=== PATIENT | male | born 1975 | race Caucasian/White ===

== ENCOUNTER 2024-11-24 12:57 | Day surgery (SDC) | payer MEDICAID ==
[2024-11-22 11:21] LABS: LEUKOCYTE ESTERASE ,URINE NEGATIVE (Neg); NITRITES, URINE NEGATIVE (Neg); OCCULT BLOOD,URINE NEGATIVE (Neg)
[2024-11-22 11:22] LABS: MEAN PLATELET VOLUME 10.2 FL (7.4-10.4); PRE OP HEMATOCRIT 44.9 % (42.0-52.0); PRE OP HEMOGLOBIN 15.6 g/dL (14.0-17.9); PRE OP PLATELET COUNT 181 X10'3 (140-440); PRE OP WHITE BLOOD COUNT 5.8 10'3 (4.8-10.8); RED CELL DISTRIBUTION WIDTH 12.8 % (11.5-14.5)
[2024-11-22 11:27] LABS: UA COLLECTION TYPE NON-SPECIFIED
[2024-11-22 11:36] LABS: CREATININE 1.13 MG/DL (0.60-1.10); PRE OP ALT 41 U/L (30-65); PRE OP ANION GAP 6 (8-16); PRE OP AST 25 U/L (10-37); PRE OP BILIRUB, TOTAL 0.5 MG/DL (0.0-1.0); PRE OP GLUCOSE 96 MG/DL (70-104); PRE OP POTASSIUM 3.9 MMOL/L (3.4-5.1); PRE OP SODIUM 143 MMOL/L (135-145); TOTAL CARBON DIOXIDE 31.0 MMOL/L (24-32); eGFR 70 ML/MIN
--- NOTE | 2024-11-22 12:24 | ELECTROCARDIOGRAPH REPORT ---
[facility] Test Date: 2024-11-22 Test Time: 12:20:08 Pat Name: ROMAINE FLORIAN Department: [facility]-PRE-OP Patient ID: [facility]-[id number] Room: Gender: M Manager Grant: : [id number] Requested By: DEBORAH OMALLEY Order Number: [id number] Reading MD: Dr. DIEGO Shannon Measurements Intervals [place] Rate: 71 P: 64 CA: 123 QRS: 70 QRSD: 99 T: 43 QT: 387 QTc: 421 Interpretive Statements Sinus rhythm ST elev, probable normal early repol pattern Electronically Signed On 11-23-2024 16:36:[address] DIEGO Shannon Please click the below link to view image of tracing.
[~2024-11-24] VITALS: Ht 180.3 cm; Wt 92.8 kg
[2024-11-24] VITALS (8 sets, daily range): BP systolic 115–136; BP diastolic 69–86; PULSE 66–97; RESP 15–21; TEMP 98; O2SAT 67–99
[2024-11-24] MEDS: ceFAZolin 2gm/dext,iso 50mL 50 ML IV ONE (05:30)
[~2024-11-24 12:57] MED LIST: AMLO5TAB PO; BUPR-726 PO
[2024-11-24] MEDS: ringers solution, lacted 1,000 ML IV SCH (13:47)
[2024-11-24] MEDS ORDERED: BUPIVAcaine/PF 2.5 mg/ml (0.25%) 30ml vial ONE (14:28)
[2024-11-24] MEDS ORDERED: bacitracin 15gm ointment TP ONE (14:28)
[2024-11-24] MEDS ORDERED: midazolam 1 mg/ML 2ml injection ONE (15:40)
[2024-11-24] MEDS ORDERED: fentaNYL/PF 50MCG/1 ML 2ML syringe ONE ×2 (15:40→17:36)
[2024-11-24] MEDS ORDERED: propofol inj 20 ML IV ONE (15:41)
[2024-11-24] MEDS ORDERED: LIDOcaine 2% (20mg/ml) 5ml vial ONE (15:41)
[2024-11-24] MEDS ORDERED: ROPIVAcaine 0.5% (5mg/ml) 30ml vial ONE (15:41)
[2024-11-24] MEDS ORDERED: ondansetron/PF 4mg/2ml inj ONE (15:41)
[2024-11-24] MEDS ORDERED: acetaminophen 1,000mg/100ml IV 100 ML IV ONE (15:55)
[2024-11-24] MEDS ORDERED: morphine 4 MG/ML inj SYRINge IV PRN (16:00)
[2024-11-24] MEDS ORDERED: ringers solution, lacted 1,000 ML IV SCH (16:00)
[2024-11-24] MEDS ORDERED: labetalol 20mg/4ml (5mg/ml) syringe IV PRN (16:00)
[2024-11-24] MEDS ORDERED: HYDROmorphone/PF 0.2 MG/ML SYRINGE IV PRN ×2 (16:00)
[2024-11-24] MEDS ORDERED: hydrALAZINE 20mg/ml inj. IV PRN (16:00)
--- NOTE | 2024-11-24 16:07 | ANESTHESIA RECORDS ---
Nerve Block Providers to CC CC: DEBROAH OMALLEY DPM ~ Diagnosis: Nerve Block requested by: DEBORAH OMALLEY DPM Neuraxial/Peripheral Nerve Block requested for Post-operative analgesia by Physician above DIAGNOSIS: Post-operative pain. (Body Area) Shoulder: [ ] Arm: [ ] Hand: [ ] Hip: [ ] Knee: [ ] Ankle: [ LEFT ] Foot: [ ] Leg: [ ] Abdomen: [ ] Other: [ ] Post-operative pain expected to be/is inadequately managed by oral or IV medicines. Regional anesthetic expected to facilitate rehabilitation and/or discharge from facility. Other:[ _] Procedure Performed: Ankle Posterior tibial: Left Ankle Superficial Peroneal: Left Ankle Deep Peroneal: Left Ankle Sural & Sapenous Nerve: Left Time out Done?: Yes Time of Time out: 15:45 Procedure Details: PROCEDURE DETAILS: Risks, benefits and alternatives explained Informed consent obtained, and patient wishes to proceed Conscious sedation with indicated monitors Patient positioned, pertinent anatomy defined, sterile technique used Needle used: [ ] 3 1/8 inch Stimuplex Ultra 22ga [ ] 4 inch Stimuplex Ultra 20ga [ ] 6 inch Stimuplex Ultra 20ga [ ] 6 inch, [place]ik[place] over the needle catheter set 20ga [ ] 4 inch [place]ik[place] over the needle catheter set 20ga [X ]Other: [ ] Loss of twitch @ [ ]mA [X ] Single Injection [ ] Catheter Ultrasound Guidance Used: [X ] Yes [ ] No Attempts:[___1 ] Medicines injected: [ ]Clonidine Amt:[ ] [ X ]Dexamethasone Amt:[ 2MG ] [ X ]Ropivacaine Amt:[____0.5% 30 C.C ] [ ]Bupivacaine Amt:[ ] [ ]Lidocaine Amt:[ ] [ ]Exparel 1.33%:[ ] [ ]Epinephrine Amt[ ] [ ]Other: [ ] Intermittent aspiration during local anesthetic administration No symptoms of intraneural or intravenous injection Patient tolerated procedure well Comments Left ankle bone,ligament landmarks, all 5 nerve bundle anatomicl locations identified. Infiltrated all the nerve bundles. AMADO KC MD Nov 24, 2024 16:07
[2024-11-24] MEDS: ondansetron/PF 4mg/2ml inj IV PRN (18:42)
== END 2024-11-24 19:25 | disposition home or self-care (01) ==
LOC: PAS 12:57
PROVIDERS: ATTEND Podiatrist Foot & Ankle Surgery
DX: M25.375 Other instability, left foot (principal); M25.372 Other instability, left ankle; I10 Essential (primary) hypertension; F32.A Depression, unspecified; M25.472 Effusion, left ankle; S93.492A Sprain of other ligament of left ankle, initial encounter; X50.1XXA Overexertion from prolonged static or awkward postures, initial encounter; Y93.89 Activity, other specified; Y92.89 Other specified places as the place of occurrence of the external cause; Y99.8 Other external cause status; Z79.899 Other long term (current) drug therapy; G89.18 Other acute postprocedural pain
CPT/HCPCS: 27698; 28200; 29895; 36415; 64450; 73600; 76942; 80053; 81003; 82948; 85025; 93005; A6222; C1713; J0131; J0780; J1100; J2003; J2250; J2405; J2704; J2795; J3010; J3490; J7120; Z7506; Z7508; Z7512; 76000; A4618; A6449; A7000